=== PATIENT | female | born 1950 | race Caucasian/White ===

== ENCOUNTER → 2017-02-13 | Outpatient (CLI) | payer MEDICARE ==
--- NOTE | 2017-02-13 15:12 | US ---
EXAMINATION TYPE: US transvaginal DATE OF EXAM: 02/13/2017 COMPARISON: CT abdomen and pelvis September 28, 2010. CLINICAL HISTORY: N95.0 Post menopausal bleeding. Spotting TECHNIQUE: Transvaginal (TV) pelvic ultrasound. Date of LMP: 1974 EXAM MEASUREMENTS: Uterus: 4.5 x 2.5 x 3.5 cm Endometrial Stripe: 0.5 cm Right Ovary: unable to visualize Left Ovary: unable to visualize 1. Uterus: Retroverted cystic areas noted, possible Nabothian cysts 2. Endometrium: appears wnl 3. Right Ovary: unable to visualize 4. Left Ovary: unable to visualize 5. Bilateral Adnexa: wnl 6. Posterior cul-de-sac: wnl Uterus is retroverted in shape, cystic lesions lower uterine segment/cervix favor benign etiology or nabothian cyst. Endometrium is not seen with certainty and felt to be atrophic. Overall uterus is het erogeneous without distinct focal mass. IMPRESSION: No significant finding is seen to account for patient's symptoms.
== END | disposition home or self-care (01) ==
LOC: RADUSWWP 13:49
PROVIDERS: ATTEND Family Medicine
DX: N95.0 Postmenopausal bleeding (principal)
CPT/HCPCS: 76830

== ENCOUNTER → 2017-07-24 | Outpatient (CLI) | payer MEDICARE ==
--- NOTE | 2017-07-25 10:01 | MM ---
Reason for exam: screening (asymptomatic). Last mammogram was performed 1 year ago. History: Patient is postmenopausal. Family history of breast cancer in grandmother. Took estrogen for 4 years. Physical Findings: A clinical breast exam by your physician is recommended on an annual basis and results should be correlated with mammographic findings. MG 3D Screening Mammo W/Cad Bilateral CC and MLO view(s) were taken. XCCL view(s) were taken of the left breast. Prior study comparison: July 19, 2016, bilateral MG 3d screening mammo w/cad. February 13, 2016, left breast MG 3d diag mammo w/cad LT. Finding: There are typically benign calcifications in both breasts. No significant changes in finding since July 19, 2016 and February 13, 2016. ASSESSMENT: Benign, BI-RAD 2 RECOMMENDATION: Routine screening mammogram of both breasts in 1 year.
== END | disposition home or self-care (01) ==
LOC: RADMAMWWP 16:24
PROVIDERS: ATTEND Family Medicine
DX: Z12.31 Encounter for screening mammogram for malignant neoplasm of breast (principal)
CPT/HCPCS: 77063; G0202

== ENCOUNTER → 2018-05-14 | Outpatient (CLI) | payer MEDICARE ==
--- NOTE | 2018-05-14 17:47 | CONS ---
CONSULTATION DATE OF SERVICE: 05/14/2018 This 67-year-old lady has been evaluated in the sleep center for possible obstructive sleep apnea-hypopnea syndrome. HISTORY OF PRESENT ILLNESS/SLEEP-WAKE EVALUATION: Patient's usual sleep schedule is from 11:30 p.m. to 9 a.m. Usually no problems with falling asleep. She watch TV in the bedroom, sleeps on the side position, wakes up from sleep around 3 times with nocturia. No history of hypnagogic hallucinations, sleep paralysis or cataplexy. Usually she does not take any naps during the day. [place] Sleepiness Scale is 0. PAST MEDICAL HISTORY: 1. Atrial fibrillation. 2. Coronary artery disease with possible heart attack. 3. Hypertension. 4. Hyperlipidemia. 5. Hypothyroidism. PAST SURGICAL HISTORY: 1. Right knee replacement. 2. Right ankle fusion. 3. Lap band surgery. 4. Cholecystectomy. 5. Angioplasty of the heart. 6. Restless leg syndrome. MEDICATIONS: 1. Metoprolol. 2. Atorvastatin. 3. Ropinirole. 4. Hydrochlorothiazide. 5. Synthroid. 6. . SOCIAL HISTORY: Positive for smoking in the past for about 20 years. Quit 37 years ago. FAMILY HISTORY: Hypertension, heart problems, hyperlipidemia, stroke, arthritis, asthma, lung problems, cancer, thyroid problems, restless legs. REVIEW OF SYSTEMS: Cardiac arrhythmia. PHYSICAL EXAMINATION: GENERAL A pleasant lady without distress. VITAL SIGNS: BP 161/93, HR 78, RR 18, height 65 inches, weight 260.4 pounds, body mass index 43.2, temperature 98.1, oxygen saturation at room air 98%. HEENT: PERRLA, EOMI. Evaluation of oropharynx showed tongue protrudes midline; moderately to extremely low position of soft palate. NECK: Supple. No JVD. Thyroid is not palpable. Circumference 13.5 inches. LUNGS: Clear to percussion and to auscultation. Good air exchange. No wheezing or rhonchi. HEART: S1, S2 irregularly irregular. ABDOMEN: Obese. EXTREMITIES: No clubbing or cyanosis. Scar on right knee and right ankle. 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 Cranial nerves 2 to 7 intact. There is no fasciculation or atrophy. noted. No focal deficits observed. IMPRESSION: 1. Multiple awakenings from sleep, low position of soft palate; possible obstructive sleep apnea-hypopnea syndrome. 2. Coronary artery disease, status post angioplasty. 3. Atrial fibrillation. 4. Hypertension. 5. Hyperlipidemia. 6. Hypothyroidism. 7. Status post right knee replacement. 8. Status post right ankle fusion. 9. Status post cholecystectomy. 10.Restless legs syndrome. 11.Status post lap band surgery. 12.Status post tubal ligation. PLAN: 1. Polysomnography for evaluation of patient's breathing during sleep. 2. CPAP/BiPAP titration if sleep study confirms obstructive sleep apnea-hypopnea syndrome. 3. Preferable position during sleep on the side. 4. No driving if patient feels any sleepiness. Patient is aware of civil and criminal liability for unsafe driving. 5. I will see patient for follow-up visit to explain results of testing and following plan. Thank you very much for referring this patient for consultation. Sincerely, Bennie Haile MD, PhD, FAASM Diplomat of [employer] [facility] [place] MMODL / GISSELN: [id number] /
== END | disposition home or self-care (01) ==
LOC: SLEEP 13:37
PROVIDERS: ATTEND Internal Medicine
DX: G47.00 Insomnia, unspecified (principal); I25.10 Atherosclerotic heart disease of native coronary artery without angina pectoris; I48.91 Unspecified atrial fibrillation; I10 Essential (primary) hypertension; E78.5 Hyperlipidemia, unspecified; E03.9 Hypothyroidism, unspecified; G25.81 Restless legs syndrome; Z87.891 Personal history of nicotine dependence; Z98.61 Coronary angioplasty status; Z96.651 Presence of right artificial knee joint; Z98.1 Arthrodesis status; Z90.49 Acquired absence of other specified parts of digestive tract; Z98.84 Bariatric surgery status; Z98.51 Tubal ligation status; Z79.899 Other long term (current) drug therapy
CPT/HCPCS: 99211

== ENCOUNTER → 2019-01-11 | Outpatient (CLI) | payer MEDICARE ==
--- NOTE | 2019-01-12 13:31 | MM ---
Reason for exam: screening (asymptomatic). Last mammogram was performed 1 year and 6 months ago. History: Patient is postmenopausal. Family history of breast cancer in maternal grandmother at age 70. Took estrogen for 4 years. Physical Findings: A clinical breast exam by your physician is recommended on an annual basis and results should be correlated with mammographic findings. MG 3D Screening Mammo W/Cad Bilateral CC and MLO view(s) were taken. Prior study comparison: July 24, 2017, bilateral MG 3d screening mammo w/cad. July 19, 2016, bilateral MG 3d screening mammo w/cad. There are scattered fibroglandular densities. No significant changes when compared with prior studies. ASSESSMENT: Benign, BI-RAD 2 RECOMMENDATION: Routine screening mammogram of both breasts in 1 year.
== END | disposition home or self-care (01) ==
LOC: RADMAMWWP 09:55
PROVIDERS: ATTEND Family Medicine
DX: Z12.31 Encounter for screening mammogram for malignant neoplasm of breast (principal)
CPT/HCPCS: 77063; 77067

== ENCOUNTER → 2019-03-12 | Outpatient (CLI) | payer MEDICARE ==
[2019-03-12 15:32] LABS: African American GFR (CKD) 87.8 (60.0-200.0); Anion Gap 3.5 mmol/L (4.00-12.00); BUN/Creat Ratio 21.25 Ratio (12.00-20.00); Calcium 9.5 mg/dL (8.7-10.3); Carbon Dioxide 29.5 mmol/L (21.6-31.8); Potassium 4.6 mmol/L (3.5-5.5)
== END | disposition home or self-care (01) ==
LOC: LABWHC1 09:37
PROVIDERS: ATTEND Nurse Practitioner Adult Health
DX: I10 Essential (primary) hypertension (principal)
CPT/HCPCS: 36415; 80048; 83735

== ENCOUNTER → 2020-03-28 | Outpatient (CLI) | payer MEDICARE ==
[2020-03-28 13:26] VITALS: BP 151/82; PULSE 62; TEMP 98.2; BMI 43.0
--- NOTE | 2020-03-28 16:21 | FL ---
Barium swallow HISTORY: Reflux, dysphasia Patient was given 2 ounces EZ paque I mouth. 5 seconds fluoroscopy time, 5 images obtained The lap band shows a normal orientation. There is passage of contrast across the LAP-BAND. There is n o obstruction to flow. No evident leak. IMPRESSION: No obstruction or leak
--- NOTE | 2020-03-28 20:12 | PN ---
PROGRESS NOTE DATE OF SERVICE: 03/28/2020 CHIEF COMPLAINT: GERD, weight gain. INTERVAL HISTORY: This patient is a lap band patient. She was last seen in 2013. She thought her band may be empty at this time. Band was initially placed in 2007. Looking back at our old records, the patient had 5.3 mL in her band at the time of her last visit. Her lowest weight was 204. Currently 267. She has gained 30 pounds in the last year. She describes dysphagia to both liquids and solids, worse in the morning and lunch time. PHYSICAL EXAMINATION: Abdomen is soft, nontender, nondistended. PLAN: Will access the patient's lap band port at this time. Will plan to empty the band. Will check esophagram. The patient's port was accessed sterilely. The You needle was advanced with mild difficulty, given the angulation of the port, and 5.2 mL was evacuated. MMODL / IJN: [id number] /
== END | disposition home or self-care (01) ==
LOC: BARWHC3 12:47
PROVIDERS: ATTEND Surgery
DX: R13.10 Dysphagia, unspecified (principal); K21.9 Gastro-esophageal reflux disease without esophagitis; R63.5 Abnormal weight gain; Z46.51 Encounter for fitting and adjustment of gastric lap band
CPT/HCPCS: 74220; G0463; 99213

== ENCOUNTER → 2020-04-11 | Outpatient (CLI) | payer MEDICARE ==
[2020-04-11 12:53] VITALS: BP 143/79; PULSE 85; RESP 16; TEMP 98.2; BMI 43.2
--- NOTE | 2020-04-11 14:55 | P.BASOAP ---
Subjective Progress Note Date: 04/11/20 Principal diagnosis: Morbid obesity Patient returns after recent visit in March. The patient's band was emptied 5.2 mL was evacuated. Following that upper GI showed no obstruction or prolapse. She has had no weight change since then. Her dysphagia did resolve. She would like more fluid added. Objective - Vital Signs Vital signs: Vital Signs Temp 98.2 F 04/11/20 12:48 Pulse 85 04/11/20 12:48 Resp 16 04/11/20 12:48 BP 143/79 04/11/20 12:48 Pulse Ox Intake & Output 04/10/20 04/11/20 04/11/20 18:59 06:59 18:59 Weight 121.563 kg - Exam Abdomen: Soft, nontender, nondistended Assessment/Plan (1) Morbid obesity Narrative/Plan: Patient interested in a band adjustment. She was too tight at 5.2 mL. We'll add 3 mL at this time.The patient's lap band port was palpated. The site was aseptically prepped. The You needle was advanced into the port. A total of 3 ml of fluid was added for a total of 3. Pressure was held and a sterile dressing was applied. Plan: Date: 04/11/20 Initial Weight: 146.964 kg Initial BMI: 52.2 Current Weight: 121.563 kg Current BMI: 43.2 Type of Surgery: Adjustable Gastric Banding Total Volume in Band: 3 Previous Volume: Volume Removed: Volume Added: 3 Band Size:
== END | disposition home or self-care (01) ==
LOC: BARWHC3 12:33
PROVIDERS: ATTEND Surgery
DX: E66.01 Morbid (severe) obesity due to excess calories (principal); Z68.42 Body mass index [BMI] 45.0-49.9, adult
CPT/HCPCS: 99211

== ENCOUNTER → 2020-05-04 | Outpatient (CLI) | payer MEDICARE ==
--- NOTE | 2020-05-04 13:17 | BD ---
EXAMINATION TYPE: Axial Bone Density DATE OF EXAM: 05/04/2020 COMPARISON: 2016 CLINICAL HISTORY: 64-year-old female postmenopausal screening Height: 5 FT 5 IN Weight: 271 FRAX RISK QUESTIONS: Alcohol (3 or more units per day): NO Family History (Parent hip fracture): NO Glucocorticoids (More than 3mos): NO (Ex: prednisone, prednisolone, methylprednisolone, dexamethasone, and hydrocortisone). History of Fracture in Adulthood: YES Secondary Osteoporosis: 1. Type 1 Diabetes: 2. Hyperthyroidism: NO 3. Menopause before 45: YES 4. Malnutrition: NO 5. Chronic liver disease: NO Rheumatoid Arthritis: NO Current Tobacco Use: NO RISK FACTORS HISTORY OF: Family History of Osteoporosis: YES Active: YES Postmenopausal woman: AGE 43 Take estrogen and/or progesterone medications: TOOK HRT AGE 43-47 MEDICATIONS: Thyroid Medications: YES Which medication: SYNTHROID How Long: APPROX 20 YEARS Additional Medications: TIKOSYN , SYNTHROID , ELOQUIST, METOPROLOL, LOSARTIN, ATORVASTATIN, ROPINIRO LE, XANAX NEEDED, Additional History: EXAM MEASUREMENTS: Bone mineral densitometry was performed using the Zinc software System. Bone mineral density as measured about the Lumbar spine is: ----- L1-L4(G/cm2): 1.080 T Score Values are as follows: ----- L2: -1.8 ----- L3: -0.1 ----- L4: -0.7 ----- L1-L4: -0.8 Bone mineral density has: DECREASED -2.0 % since study of: 2015 Bone mineral density about the R hip (g/cm2): 0.822 Bone mineral density about the L hip (g/cm2): 0.833 T Score values are as follows: -----R Neck: -1.6 -----L Neck: -1.5 -----R Total: -1.7 -----L Total: -1.6 Bone mineral density has: DECREASED -7.3 % since study of: 2016 IMPRESSION: Osteopenia (T Score between -2.5 and -1). There is slightly increased risk of fracture and the patient may be considered for treatment. Re-Screen 2-5 years. NOTE: T-SCORE=SD OF THE YOUNG ADULT MEAN.
== END | disposition home or self-care (01) ==
LOC: RADBDWWP 11:05
PROVIDERS: ATTEND Family Medicine
DX: M85.80 Other specified disorders of bone density and structure, unspecified site (principal); Z78.0 Asymptomatic menopausal state
CPT/HCPCS: 77080

== ENCOUNTER → 2020-05-09 | Outpatient (CLI) | payer MEDICARE ==
[2020-05-09 13:08] VITALS: BP 141/84; PULSE 84; TEMP 97.8; BMI 44.2
--- NOTE | 2020-05-09 14:11 | P.BASOAP ---
Subjective Progress Note Date: 05/09/20 Principal diagnosis: Morbid obesity Patient doing well today. She says she did notice some of the fill from last visit. She would like more fluid added. She was too tight at 5.2. Currently at 3 mL. Denies nausea vomiting or reflux. She did gain 6 pounds. Objective - Vital Signs Vital signs: Vital Signs Temp 97.8 F 05/09/20 13:05 Pulse 84 05/09/20 13:05 Resp BP 141/84 05/09/20 13:05 Pulse Ox Intake & Output 05/08/20 05/09/20 05/09/20 18:59 06:59 18:59 Weight 124.284 kg - Exam Abdomen: Soft, nontender, nondistended Assessment/Plan (1) Morbid obesity Narrative/Plan: Patient doing well at this time. We'll add 1 mL for a total of 4 mL. Follow-up 2-4 weeks. The patient's lap band port was palpated. The site was aseptically prepped. The You needle was advanced into the port. A total of 1 ml of fluid was added for a total of 4 mL. Pressure was held and a sterile dressing was applied. Plan: Date: 05/09/20 Initial Weight: 146.964 kg Initial BMI: 52.2 Current Weight: 124.284 kg Current BMI: 44.2 Type of Surgery: Total Volume in Band: 3 Previous Volume: Volume Removed: Volume Added: Band Size:
== END | disposition home or self-care (01) ==
LOC: BARWHC3 12:57
PROVIDERS: ATTEND Surgery
DX: E66.01 Morbid (severe) obesity due to excess calories (principal); Z68.41 Body mass index [BMI] 40.0-44.9, adult
CPT/HCPCS: 99212

== ENCOUNTER → 2020-05-30 | Outpatient (CLI) | payer MEDICARE ==
--- NOTE | 2020-05-30 14:17 | P.BASOAP ---
Subjective Progress Note Date: 05/30/20 Principal diagnosis: Morbid obesity Patient last seen earlier this month. He went from 3-4 mL. Still feels no restriction. Wants more fluid. She was too tight at 5.2 mL. Objective - Exam Abdomen: Soft, nontender, nondistended Assessment/Plan (1) Morbid obesity Narrative/Plan: Patient doing well. We'll add 0.6 mL. Follow-up after she returns from [place] in the springtime. The patient's lap band port was palpated. The site was aseptically prepped. The You needle was advanced into the port. A total of 0.6 ml of fluid was added for a total of 4.6 mL. Pressure was held and a sterile dressing was applied. Plan: Date: Initial Weight: 146.964 kg Initial BMI: Current Weight: Current BMI: Type of Surgery: Total Volume in Band: 3 Previous Volume: Volume Removed: Volume Added: Band Size:
[2020-05-30 14:19] VITALS: BP 164/95; PULSE 72; RESP 16; TEMP 97.8; BMI 44.2
== END | disposition home or self-care (01) ==
LOC: BARWHC3 13:50
PROVIDERS: ATTEND Surgery
DX: E66.01 Morbid (severe) obesity due to excess calories (principal); Z68.41 Body mass index [BMI] 40.0-44.9, adult
CPT/HCPCS: 99212

== ENCOUNTER → 2023-02-27 | Outpatient (CLI) | payer BC ==
[2023-02-27 21:11] LABS: Basophils # (A) 0.08 X 10*3/uL (0.00-0.10); Basophils % (A) 1.4 %; Eosinophils # (A) 0.08 X 10*3/uL (0.04-0.35); Eosinophils % (A) 1.4 %; HCT 45.9 % (37.2-46.3); HGB 14.5 d/dL (12.0-15.0); Lymphocytes # (A) 1.59 X 10*3/uL (0.90-5.00); Lymphocytes % (A) 28.2 %; MCH 30.8 pg (27.0-32.0); MCHC 31.6 d/dL (32.0-37.0); MCV 97.5 FL (80.0-97.0); Mean Platelet Volume 10.9 FL (9.5-12.2); Monocytes # (A) 0.59 X 10*3/uL (0.20-1.00); Monocytes % (A) 10.5 %; NRBC Per 100 WBC 0 X 10*3/uL (0.00-0.01); Neutrophils # (A) 3.28 X 10*3/uL (1.80-7.70); Neutrophils % (A) 58.1 %; Platelet Count 221 X 10*3/uL (140-440); RBC 4.71 X 10*6/uL (4.10-5.20); RDW 13.8 % (11.5-14.5); WBC 5.64 X 10*3/uL (4.50-10.00)
[2023-02-27 21:49] LABS: Blood Urea Nitrogen 18.5 mg/dL (9.0-27.0); Carbon Dioxide 26.3 mmol/L (21.6-31.8); Chloride 103 mmol/L (96-109); Potassium 4.3 mmol/L (3.5-5.5); Sodium 141 mmol/L (135-145)
[2023-02-28 03:12] LABS: Bacteria,Urine 1+ (None Seen)
[2023-02-28 03:15] LABS: Appearance,Urine Turbid (Clear); Bilirubin,Urine Negative (Negative); Blood,Urine Negative (Negative); Color,Urine Yellow (Yellow); Ketones,Urine Negative (Negative); Nitrite,Urine Negative (Negative); PH, Urine 6.5; Specific Gravity,Urine 1.023 (1.001-1.030)
== END | disposition home or self-care (01) ==
LOC: LABPAT 11:08
PROVIDERS: ATTEND Obstetrics & Gynecology
DX: Z01.812 Encounter for preprocedural laboratory examination (principal); N81.11 Cystocele, midline; R94.6 Abnormal results of thyroid function studies
CPT/HCPCS: 36415; 80051; 81001; 82565; 84443; 84520; 85025

== ENCOUNTER 2023-03-07 05:48 | Day surgery (SDC) | payer MEDICARE ==
[2023-03-03 15:27] VITALS: BMI 49.1
--- NOTE | 2023-03-05 13:32 | HP ---
HISTORY AND PHYSICAL SCHEDULED DATE OF SURGERY: March 07. HISTORY OF PRESENT ILLNESS: The patient is a 72-year-old, 3, para 2-0-1-2, who presents on referral from Dr. Tatianna Espinal for findings of a cystocele. The patient reports that she was found with a cystocele at her last annual examination, at which time, she was told it could be observed as long as she was asymptomatic. She recently began to feel some increased bulging at the opening of the vagina along with increasing pelvic pressure. She at this time reports enough symptomatology that she would like to have it addressed surgically. She does have the uterus in place, but at exam, the uterus does not appear to be a significant component of the prolapse. In order to decrease the patient's surgical risk, we will proceed with anterior colporrhaphy alone. She is not at this time sexually active. PAST MEDICAL HISTORY: Significant for asthma, atrial fibrillation, chronic bronchitis, hypertension, heart disease, hypothyroidism, kidney disease, osteoporosis, and a distant history of scarlet fever. PAST SURGICAL HISTORY: Significant for angioplasty, an ankle fusion, a cardiac ablation as well as cardioversion and placement of a defibrillator. She additionally had a cholecystectomy, a right knee replacement, Lap-Band surgery, and tubal ligation. There is no reported history of anesthetic concerns. OBSTETRICAL HISTORY: 3, para 2-0-1-2 with 2 term vaginal deliveries without complications and 1 early miscarriage. GYNECOLOGIC HISTORY: Unremarkable except as noted in history of present illness. FAMILY HISTORY: Noncontributory. SOCIAL HISTORY: The patient is and is a former smoker. She reports otherwise no significant other social concerns. CURRENT MEDICATIONS: Include: 1. Atorvastatin 20 mg. 2. Eliquis 5 mg twice daily. 3. Levothyroxine 125 mcg once daily. 4. Losartan 25 mg daily. 5. Magnesium 400 mg daily. 6. Metoprolol ER 25 mg daily. 7. Multivitamin daily. 8. Ropinirole 3 mg prior to bedtime. 9. Tikosyn 500 mg 2 times daily as needed. 10.Tylenol as needed. 11.Xanax 0.25 mg t.i.d. as needed. ALLERGIES: No known drug allergies. REVIEW OF SYSTEMS: Confined to history of present illness. PHYSICAL EXAMINATION: VITAL SIGNS: Stable, and the patient is afebrile. GENERAL: This is a well-developed, well-nourished, white female, in no acute distress. She is morbidly obese. HEART: Has a regular rhythm and rate without murmur. LUNGS: Clear to auscultation bilaterally in all nuno. ABDOMEN: Obese and nondistended. Has normoactive bowel sounds. Soft and nontender without any palpable masses, hepatosplenomegaly, or hernias. EXTREMITIES: Without any cyanosis, clubbing, or edema and are nontender to palpation bilaterally. PELVIC: Demonstrates normal external genitalia and BUS with a grade 3+ cystocele present. The cervix is normal and demonstrates grade 2 uterine prolapse. The uterus is midplane, mobile, atrophic, and normal in shape. The adnexa are nonpalpable without any apparent masses bilaterally. ASSESSMENT AND PLAN: Cystocele with minimal uterine prolapse. I do not believe the patient requires vaginal hysterectomy as this would increase her surgical risk. As a result, we will limit the procedure to anterior colporrhaphy as the patient declines pessary as an option. The risks and complications of the procedure have been thoroughly discussed including the risk for bleeding, bleeding requiring transfusion, infection, and injury to local structures, specifically the bladder. I have requested that she stop Eliquis at least 3 to 4 days prior to the surgery. She has undergone medical clearance, and we are scheduled for the procedure on the morning of March 07, as outlined above. MMODL / IJN: [id number] /
[~2023-03-07 05:48] MED LIST: ceFAZolin 3 GM in SODIUM CHLORIDE 0.9% 100 ML IVPB PRN
[2023-03-07] MEDS ORDERED: MIDAZOLAM 2 MG/2 ML VIAL IV PRN (06:08)
[2023-03-07] MEDS ORDERED: ONDANSETRON 4 MG/2 ML VIAL IVP ONE (06:08)
[2023-03-07] MEDS ORDERED: DEXAMETHASONE SOD PHOSPHATE 4 MG/ML 1 ML VIAL IV ONE (06:08)
[2023-03-07] MEDS: LACTATED RINGERS 1,000 ML IV SCH ×3 (06:50→20:43)
[2023-03-07] MEDS ORDERED: HYDROmorphone 0.5 MG/0.5 ML SYRINGE IVP PRN (07:00)
[2023-03-07] MEDS ORDERED: SUCCINYLCHOLINE CHLORIDE 200 MG/10 ML VIAL IV ONE (07:23)
[2023-03-07] MEDS ORDERED: PROPOFOL 10 MG/ML 20 ML VIAL IV ONE (07:23)
[2023-03-07] MEDS ORDERED: LIDOCAINE 2% INJ 20 MG/ML (2 ML VIAL) ONE (07:23)
[2023-03-07] MEDS ORDERED: fentaNYL (PF) 50 MCG/ML 2 ML AMP ONE (07:23)
[2023-03-07] MEDS ORDERED: VASOPRESSIN 20 UNIT/ML 1 ML VIAL IM ONE (07:49)
[2023-03-07] MEDS ORDERED: Acetaminophen-Codeine 300-30mg TAB PO PRN (08:26)
[2023-03-07] MEDS ORDERED: KETOROLAC 15 MG/ML 1 ML VIAL IVP PRN (08:26)
[2023-03-07] MEDS ORDERED: SIMETHICONE 80 MG CHEWABLE PO PRN (08:26)
[2023-03-07] MEDS ORDERED: METOCLOPRAMIDE 5 MG/ML 2 ML VIAL IVP PRN (08:26)
[2023-03-07] MEDS ORDERED: ONDANSETRON 4 MG/2 ML VIAL IVP PRN (08:26)
[2023-03-07] MEDS ORDERED: IBUPROFEN 600 MG TAB PO PRN (08:26)
[2023-03-07] MEDS ORDERED: diphenhydrAMINE 50 MG/ML 1 ML VIAL IVP PRN (08:26)
--- NOTE | 2023-03-07 08:40 | P.OP ---
Date of Procedure: 03/07/23 Preoperative Diagnosis: #1. Symptomatic grade 3+ cystocele Postoperative Diagnosis: Same Procedure(s) Performed: #1. Anterior colporrhaphy Anesthesia: SHIRIN Surgeon: Francis Devries Readers' Advisory Service Librarian #1: Negrita Mayberry Estimated Blood Loss (ml): 30 IV fluids (ml): 400 Urine output (ml): 50 Pathology: none sent Condition: stable Disposition: PACU Operative Findings: Preoperative pelvic examination reaffirmed the presence of a grade 3+ cystocele with reasonable apical support of the uterus. There was no significant evidence of a rectocele present. The postprocedural result appeared to be excellent. Clear urine was seen both before and after the case. Description of Procedure: The patient was prepped and draped in usual fashion after general endotracheal anesthesia was administered by the anesthesiologist. A weighted speculum was placed and the bladder drained of approximately 30 mL of clear antonietta urine. The anterior lip the cervix was grasped with a single-tooth tenaculum allowing placement of Allis clamps at the lateral margins on the vaginal mucosa just above the cervix and the tenaculum was removed. The cervicovaginal and vesicovaginal mucosa was infused with diluted vasopressin solution. An incision was made with a scalpel from uterosacral to uterosacral above the cervix where the Allises had been placed. The Allises were then moved to the incision near the midline and the vesicovaginal mucosa undermined in the midline using Metzenbaum scissors and divided to its apex near the urethra. Allis clamps were placed along the margin of the mucosal incision. The overlying mucosa was then dissected sharply and bluntly from the underlying tissues. Once adequate reflection of been carried out, Moscoso catheter was placed into the bladder at which time clear urine was still seen. It was drained of perhaps another 10 mL of clear antonietta urine. Serial Maria De Jesus plication stitches were placed beginning at the urethral apex using 2-0 PDS. After a number of stitches were placed from the urethral apex to the cervical margin to reduce the cystocele, the vaginal mucosa was trimmed and then closed with a running locking stitch of 2-0 Vicryl from urethra to cervix. The reduction appeared to be excellent. Moscoso catheter was reopened and noted to be mobile and drained perhaps another 10 mL for a total of 50 mL of urine output. The vagina was then packed with one-inch iodophor gauze covered with bacitracin ointment. Estimated blood loss for the case was approximately 30 mL. There were no complications. All sponge, instrument, and needle counts were correct. The patient tolerated the procedure well and proceeded to the recovery room in stable condition.
[2023-03-07] MEDS: Acetaminophen-Codeine 300-30mg TAB PO PRN ×3 (12:48→22:36)
[2023-03-07] MEDS: SENNOSIDES-DOCUSATE SODIUM 1 EACH TAB PO SCH (22:38)
[2023-03-08] MEDS: LACTATED RINGERS 1,000 ML IV SCH ×2 (06:55)
[2023-03-08 08:42] VITALS: BP 150/73; PULSE 62; RESP 15; TEMP 97.8
[2023-03-08] MEDS: Acetaminophen-Codeine 300-30mg TAB PO PRN (08:44)
[2023-03-08] MEDS: SENNOSIDES-DOCUSATE SODIUM 1 EACH TAB PO SCH (08:44)
--- NOTE | 2023-03-08 11:34 | P.DS ---
Providers Expected date of discharge: 03/08/23 Attending physician: Francis Devries Primary care physician: Tatianna Espinal - Discharge Diagnosis(es) (1) Cystocele Current Visit: Yes Status: Acute Hospital Course: The patient is a 72-year-old 3 para 2011 who presented on referral from Dr. Tatianna Caballero for findings of a symptomatic cystocele. She had previously known pelvic organ prolapse that was asymptomatic but, over the course of the winter, has become more prominent with bulging at the opening of the vagina and increasing pelvic pressure. As a result, she requested surgical repair. Examination more out that the cervix and uterus were not a portion of the prolapse and it was confined primarily to only cystocele. As result she was taken the operating room where she underwent anterior colporrhaphy and uncomplicated fashion. She had a catheter in her bladder overnight as well as vaginal packing which was removed the morning following surgery. She underwent a voiding trial at which time on her first void she was able to void 400 mL with a postvoid residual of less than 40 mL. She had minimal ongoing pain and did report some spotting which may increase when she resumes her Eliquis tomorrow. She was deemed stable for discharge on the morning of postoperative day #1 was discharged home to follow-up in the office in 2 weeks for recheck and 6 weeks routinely. Discharge instructions included primarily no heavy lifting of greater than a gallon of milk, approximately 8 pounds for at least 6 weeks time. She otherwise was to call for any significantly increased bleeding, fever, pain, urinary complaints, or anything else that concerned her. She is no longer sexually active but was warned to have nothing in the vagina for at least 6 weeks time. She understood all of her instructions and agrees to follow up as noted above. Discharge medications included resumption of all of her home medications plus a prescription for Tylenol 3, 1-2 by mouth every 6 hours when necessary pain, #20 dispensed with no refills. Discharge hemoglobin and hematocrit are not available on the chart despite having been ordered for early this morning. There is no concern for ongoing bleeding so we will not wait for this return for discharge. Procedures: #1. Anterior colporrhaphy Patient Condition at Discharge: Stable Plan - Discharge Summary Discharge Rx Participant: Yes New Discharge Prescriptions: No Action rOPINIRole HCL [Requip] 3 mg PO HS Levothyroxine Sodium [Synthroid] 135 mcg PO QAM Atorvastatin [Lipitor] 20 mg PO HS ALPRAZolam [Alprazolam] 0.5 mg PO DIRECTED PRN PRN Reason: Anxiety Apixaban [Eliquis] 5 mg PO BID Losartan [Cozaar] 25 mg PO DAILY Dofetilide [Tikosyn] 500 mg PO BID Metoprolol Succinate (ER) [Toprol XL] 1 tab PO BID Magnesium 400 mg PO DAILY Multivitamins, Thera [Multivitamin (formulary)] 1 tab PO DAILY Spironolactone 25 mg PO DAILY Acetaminophen-Codeine 300-30mg [Tylenol w/codeine #3] 1 tab PO Q6HR Discharge Medication List ALPRAZolam [Alprazolam] 0.5 mg PO DIRECTED PRN 07/29/16 [History] Atorvastatin [Lipitor] 20 mg PO HS 07/29/16 [History] Levothyroxine Sodium [Synthroid] 135 mcg PO QAM 07/29/16 [History] rOPINIRole HCL [Requip] 3 mg PO HS 07/29/16 [History] Apixaban [Eliquis] 5 mg PO BID 03/28/20 [History] Dofetilide [Tikosyn] 500 mg PO BID 03/28/20 [History] Losartan [Cozaar] 25 mg PO DAILY 03/28/20 [History] Magnesium 400 mg PO DAILY 03/28/20 [History] Metoprolol Succinate (ER) [Toprol XL] 1 tab PO BID 03/28/20 [History] Multivitamins, Thera [Multivitamin (formulary)] 1 tab PO DAILY 03/28/20 [History] Acetaminophen-Codeine 300-30mg [Tylenol w/codeine #3] 1 tab PO Q6HR 03/07/23 [History] Spironolactone 25 mg PO DAILY 03/07/23 [History] Follow up Appointment(s)/Referral(s): Francis Devries MD [STAFF PHYSICIAN] - 2 Weeks Discharge Disposition: HOME SELF-CARE
== END 2023-03-08 12:20 | disposition home or self-care (01) ==
LOC: OR 05:48 → 4FBP 08:16 → OR 03-08 12:20
PROVIDERS: ATTEND Obstetrics & Gynecology
DX: N81.3 Complete uterovaginal prolapse (principal); I48.91 Unspecified atrial fibrillation; I11.9 Hypertensive heart disease without heart failure; E03.9 Hypothyroidism, unspecified; M81.0 Age-related osteoporosis without current pathological fracture; N28.9 Disorder of kidney and ureter, unspecified; J45.909 Unspecified asthma, uncomplicated; Z90.49 Acquired absence of other specified parts of digestive tract; Z79.01 Long term (current) use of anticoagulants; Z79.890 Hormone replacement therapy; Z79.899 Other long term (current) drug therapy
CPT/HCPCS: 86900; 86901; 86850; 57240; J1100; J0690; J2405